=== PATIENT | male | born 1965 | race Two or more races ===

== ENCOUNTER 2017-07-09 14:16 | Emergency (ER) | payer MEDICAID ==
[~2017-07-09] VITALS: Ht 180.3 cm; Wt 89.4 kg
[2017-07-09 16:06] VITALS: BP 150/101
== END 2017-07-09 16:31 | disposition home or self-care (01) ==
LOC: ER 14:16
DX: K04.7 Periapical abscess without sinus (principal); F17.210 Nicotine dependence, cigarettes, uncomplicated; Z88.0 Allergy status to penicillin